=== PATIENT | female | born 1970 | race Caucasian/White ===

== ENCOUNTER 2024-03-03 19:57 | Emergency (ER) | payer OTHER ==
[2024-03-03] MEDS ORDERED: Gabapentin 300 MG CAP PO SCH (20:45)
[2024-03-03] MEDS ORDERED: Gabapentin 300 MG CAP ONE (20:53)
[2024-03-03 21:07] LABS: #Basophils 0.07 10x3/uL (0.0-0.2); #Monocytes 0.63 10x3/uL (0.0-1.1); #Neutrophils 4.68 10x3/uL (1.5-8.4); %Basophils 0.8 % (0.0-2.0); %Eosinophils 7.1 % (0.0-6.0); %Monocytes 7.5 % (0.0-10.0); %Neutrophils 55.5 % (40.0-75.0); Hemoglobin 11.8 g/dL (12.0-15.5); Mean Corpuscular HGB CONC 33.7 g/dL (32.0-36.0); Mean Corpuscular Hemoglobin 29.5 pg (27.0-33.0); Mean Corpuscular Volume 87.5 fL (81.6-98.3); Mean Platelet Volume 9.2 fL (7.4-10.4); Platelet Count 278 10x3/uL (150-450); RBC Distribution Width 12.5 % (11.5-14.5); White Blood Cell (WBC) Count 8.4 10x3/uL (3.5-10.5)
[2024-03-03 21:24] LABS: ALT (SGPT) 16 U/L (8-55); AST (SGOT) 18 U/L (5-34); Alkaline Phosphatase 70 U/L (40-110); Anion Gap 15 mmol/L (10-20); BUN (Urea Nitrogen) 20 mg/dL (9.8-20.1); Bilirubin, Total 0.3 mg/dL (0.2-1.2); Calc. Creatinine Clearance 0 mL/min (70-130); Calcium 9.7 mg/dL (7.8-10.44); Carbon Dioxide 24 mmol/L (22-29); Chloride 102 mmol/L (98-107); Estimated GFR 68; Globulin 3.4 g/dL (2.4-3.5); Glucose 94 mg/dL (70-105); Potassium 4.5 mmol/L (3.5-5.1); Protein, Total 7.4 g/dL (6.0-8.3); Sodium 136 mmol/L (136-145)
== END 2024-03-03 22:12 | disposition home or self-care (01) ==
LOC: CSHERS 19:57
DX: R20.2 Paresthesia of skin (principal); R51.9 Headache, unspecified
CPT/HCPCS: 36415; 70450; 80053; 85025; 93005